=== PATIENT | male | born 1995 ===

== ENCOUNTER 2024-04-20 15:03 | Emergency (ER) | payer OTHER ==
[~2024-04-20] VITALS: Ht 190.5 cm; Wt 128.0 kg
[~2024-04-20 15:03] MED LIST: GABA-1181 PO
[2024-04-20 15:05] VITALS: BP 117/80; PULSE 82; RESP 18; TEMP 98.5
== END 2024-04-20 15:31 | disposition left against medical advice (07) ==
LOC: EMS 15:03
DX: R55 Syncope and collapse (principal); E11.9 Type 2 diabetes mellitus without complications; J45.909 Unspecified asthma, uncomplicated; F17.210 Nicotine dependence, cigarettes, uncomplicated; F12.90 Cannabis use, unspecified, uncomplicated; Z91.010 Allergy to peanuts; Z53.21 Procedure and treatment not carried out due to patient leaving prior to being seen by health care provider

== ENCOUNTER 2024-06-15 10:08 | Inpatient (IN) | payer MEDICAID, OTHER ==
[~2024-06-15] VITALS: Ht 182.9 cm; Wt 119.6 kg
[2024-06-15 11:33] LABS: BASOPHILS % (AUTO) 1.1 % (0.0-2.0); EOSINOPHILS % (AUTO) 4.3 % (1.0-6.0); HEMATOCRIT 43.6 % (41-53); HEMOGLOBIN 14.2 g/dL (13.5-17.5); LYMPHOCYTES % (AUTO) 37.2 % (22.0-44.0); MEAN CORPUSCULAR HEMOGLOBIN 28.9 pg (26.0-34.0); MEAN CORPUSCULAR HGB CONC 32.7 G/dL (31.0-37.0); MEAN CORPUSCULAR VOLUME 89 fL (80-100); MONOCYTES # (AUTO) 0.6 K/uL (0.1-1.0); MONOCYTES % (AUTO) 12.3 % (2.0-9.0); NEUTROPHILS # (AUTO) 2.4 K/uL (1.8-7.7); NEUTROPHILS % (AUTO) 45.1 % (40.0-70.0); PLATELET COUNT (AUTO) 270 K/uL (150-450); RED BLOOD CELL COUNT(AUTO) 4.92 MIL/uL (4.50-5.90); RED CELL DISTRIBUTION WIDTH 14.1 % (11.5-14.5); WHITE BLOOD COUNT (AUTO) 5.2 K/uL (4.5-11.0)
[2024-06-15 11:37] LABS: ANION GAP 5 mmol/L (8-16); CALCIUM, TOTAL 8.2 mg/dL (8.8-10.5); CARBON DIOXIDE 30 mmol/L (22-29); CHLORIDE 106 mmol/L (98-107); CREATININE 1.02 mg/dL (0.60-1.30); GLOMERULAR FILTR. RATE CALC > 60 mL/min (>60); GLUCOSE,RANDOM 93 mg/dL (70-110); POTASSIUM 4.1 mmol/L (3.5-5.1); SODIUM SERUM 141 mmol/L (136-145); UREA NITROGEN, BLOOD 11 mg/dL (7-18)
[2024-06-15 11:51] LABS: ALCOHOL, BLOOD (SERUM) < 3 mg/dL (0-10)
[2024-06-15] MEDS: LORazepam 2 MG TABLET PO PRN (12:47)
[2024-06-15] MEDS: HALOPERIDOL 5 MG TABLET PO PRN (12:47)
[2024-06-15 12:59] LABS: COVID AG,FIA SOURCE NASAL SWAB
[2024-06-15 13:19] LABS: SARS-COV2 (COVID) ANTIGEN,FIA Negative (Negative)
[2024-06-15 13:36] LABS: APPEARANCE,URINE CLEAR (CLEAR); BILIRUBIN,URINE NEGATIVE (NEGATIVE); COLOR,URINE YELLOW (YELLOW); GLUCOSE, URINE (UA) NEGATIVE (NEGATIVE); KETONES,URINE NEGATIVE (NEGATIVE); LEUKOCYTE ESTERASE ,URINE NEGATIVE (NEGATIVE); NITRATE,URINE NEGATIVE (NEGATIVE); OCCULT BLOOD,URINE NEGATIVE (NEGATIVE); PH,URINE 6.5 (5.0-8.0); PROTEIN,URINE 30-70 mg/dL (NEGATIVE); SPECIFIC GRAVITIY, URINE 1.034 (1.003-1.030)
[2024-06-15 13:56] LABS: PH,URINE DRUG SCREEN 6.5 (5.0-8.0)
[2024-06-15 14:01] LABS: ALCOHOL, URINE DRUG SCREEN NEGATIVE (NEGATIVE); AMPHET/METH SCREEN,URINE POSITIVE (NEGATIVE); BARBITURATE SCREEN, URINE NEGATIVE (NEGATIVE); BENZODIAZEPINES SCREEN,URINE NEGATIVE (NEGATIVE); CANNABINOID SCREEN,URINE POSITIVE (NEGATIVE); COCAINE SCREEN,URINE NEGATIVE (NEGATIVE); METHADONE SCREEN, URINE NEGATIVE (NEGATIVE); OPIATE SCREEN,URINE NEGATIVE (NEGATIVE); PHENCYCLIDINE SCREEN,URINE NEGATIVE (NEGATIVE)
[2024-06-15] MEDS: ZOLPIDEM TARTRATE 10 MG TABLET PO PRN (23:07)
[2024-06-15 23:14] VITALS: BP 107/60; PULSE 57; RESP 18; TEMP 97.6; O2SAT 98
[2024-06-15] MEDS ORDERED: PNEUMOCOCCAL VACCINE POLYVALENT 0.5 ML SYRINGE [PPSV23] IM. ONE (23:30)
[2024-06-16] MEDS ORDERED: IBUPROFEN 600 MG TABLET PO PRN (05:45)
[2024-06-16] MEDS ORDERED: CloNIDine HCL 0.1 MG TABLET PO PRN (05:45)
[2024-06-16] MEDS ORDERED: ONDANSETRON HCL 4 MG TABLET PO PRN (05:45)
[2024-06-16] MEDS ORDERED: OMEPRAZOLE 20 MG CAPSULE PO PRN (05:45)
[2024-06-16] MEDS ORDERED: ALBUTEROL SULFATE HFA 90 MCG/PUFF 8 GM INHALER IH PRN (05:45)
[2024-06-16] MEDS ORDERED: BACITRACIN 28 GM OINTMENT TP PRN (05:45)
[2024-06-16] MEDS ORDERED: MAG HYDROX/ALUMINUM HYD/SIMETH ES 30 ML SUSPENSION UDCUP PO PRN (05:45)
[2024-06-16] MEDS ORDERED: PETROLATUM,WHITE 28 GM JELLY TP PRN (05:45)
[2024-06-16] MEDS ORDERED: MAGNESIUM HYDROXIDE SUSPENSION 30 ML UDCUP PO PRN (05:45)
[2024-06-16] MEDS ORDERED: ACETAMINOPHEN 325 MG TABLET PO PRN (05:45)
[2024-06-16] MEDS ORDERED: DOCUSATE SODIUM 100 MG CAPSULE PO PRN (05:45)
[2024-06-16] MEDS ORDERED: LOPERAMIDE HCL 2 MG CAPSULE PO PRN (05:45)
[2024-06-16 08:40] VITALS: BP 111/65; PULSE 65; RESP 17; TEMP 97.7; O2SAT 97
[2024-06-16 21:54] VITALS: BP 110/64; PULSE 63; RESP 18; TEMP 97.8
[2024-06-17 10:28] VITALS: BP 128/70; PULSE 65; RESP 20; TEMP 98; O2SAT 98
[2024-06-17 20:51] VITALS: BP 114/68; PULSE 64; RESP 18; TEMP 97.8
[2024-06-18 08:32] VITALS: PULSE 81; RESP 18; TEMP 97.6; O2SAT 98
== END 2024-06-18 17:21 | disposition home or self-care (01) | DRG 750 ==
LOC: EMS 10:08 → 3EC 17:35 → UNDOADMIN 17:35
PROVIDERS: ADMIT Psychiatry & Neurology Psychiatry; ATTEND Psychiatry & Neurology Psychiatry
DX: F20.9 Schizophrenia, unspecified (principal); R45.851 Suicidal ideations; E11.9 Type 2 diabetes mellitus without complications; E66.9 Obesity, unspecified; F10.10 Alcohol abuse, uncomplicated; F41.9 Anxiety disorder, unspecified; G47.00 Insomnia, unspecified; F32.A Depression, unspecified; J45.909 Unspecified asthma, uncomplicated; F17.210 Nicotine dependence, cigarettes, uncomplicated; Z20.822 Contact with and (suspected) exposure to COVID-19; Y90.9 Presence of alcohol in blood, level not specified; F12.90 Cannabis use, unspecified, uncomplicated; Z68.35 Body mass index [BMI] 35.0-35.9, adult; Z91.010 Allergy to peanuts
CPT/HCPCS: 80048; 80307; 81003; 83036; 85025; 99285; G0480

== ENCOUNTER 2024-08-25 17:47 | Inpatient (IN) | payer MEDICAID, OTHER ==
[~2024-08-25] VITALS: Ht 190.5 cm; Wt 121.1 kg
[2024-08-25 18:32] LABS: ANION GAP 5 mmol/L (8-16); BASOPHILS % (AUTO) 0.4 % (0.0-2.0); CALCIUM, TOTAL 9.2 mg/dL (8.8-10.5); CARBON DIOXIDE 30 mmol/L (22-29); CHLORIDE 101 mmol/L (98-107); CREATININE 0.93 mg/dL (0.60-1.30); EOSINOPHILS % (AUTO) 2.4 % (1.0-6.0); GLOMERULAR FILTR. RATE CALC > 60 mL/min (>60); GLUCOSE,RANDOM 103 mg/dL (70-110); HEMATOCRIT 46.1 % (41-53); HEMOGLOBIN 15.3 g/dL (13.5-17.5); LYMPHOCYTES # (AUTO) 1.9 K/uL (1.0-4.8); MEAN CORPUSCULAR HEMOGLOBIN 29.3 pg (26.0-34.0); MEAN CORPUSCULAR HGB CONC 33.3 G/dL (31.0-37.0); MEAN CORPUSCULAR VOLUME 88 fL (80-100); MONOCYTES # (AUTO) 0.5 K/uL (0.1-1.0); MONOCYTES % (AUTO) 7.4 % (2.0-9.0); NEUTROPHILS # (AUTO) 4.2 K/uL (1.8-7.7); NEUTROPHILS % (AUTO) 61.8 % (40.0-70.0); PLATELET COUNT (AUTO) 345 K/uL (150-450); RED BLOOD CELL COUNT(AUTO) 5.23 MIL/uL (4.50-5.90); RED CELL DISTRIBUTION WIDTH 14.1 % (11.5-14.5); SODIUM SERUM 136 mmol/L (136-145); UREA NITROGEN, BLOOD 12 mg/dL (7-18); WHITE BLOOD COUNT (AUTO) 6.9 K/uL (4.5-11.0)
[2024-08-25 18:34] LABS: ALCOHOL, BLOOD (SERUM) < 3 mg/dL (0-10)
[2024-08-25] MEDS ORDERED: DiphenhydrAMINE HCL 50 MG/ML VIAL ONE (18:51)
[2024-08-25] MEDS ORDERED: DiphenhydrAMINE HCL 25 MG CAPSULE PO ONE (19:00)
[2024-08-25] MEDS: LORazepam 2 MG/ML VIAL IM ONE (19:11)
[2024-08-25] MEDS: DiphenhydrAMINE HCL 50 MG/ML VIAL IM ONE (19:12)
[2024-08-25] MEDS: HALOPERIDOL LACTATE 5 MG/ML VIAL IM ONE (19:12)
[2024-08-25 20:29] LABS: COVID AG,FIA SOURCE NASAL SWAB
[2024-08-25 21:02] LABS: SARS-COV2 (COVID) ANTIGEN,FIA Negative (Negative)
[2024-08-25] MEDS ORDERED: LORazepam 2 MG TABLET PO PRN (21:30)
[2024-08-25] MEDS ORDERED: HALOPERIDOL 5 MG TABLET PO PRN (21:30)
[2024-08-25] MEDS ORDERED: ZOLPIDEM TARTRATE 10 MG TABLET PO PRN (21:30)
[2024-08-25 22:37] VITALS: O2SAT 98
[2024-08-25] MEDS ORDERED: PNEUMOCOCCAL VACCINE POLYVALENT 0.5 ML SYRINGE [PPSV23] IM. ONE (23:45)
[2024-08-26 00:33] VITALS: BP 118/76; PULSE 72; RESP 18; TEMP 98; O2SAT 98
[2024-08-26 08:51] VITALS: BP 142/75; PULSE 90; RESP 18; TEMP 97.8; O2SAT 99
[2024-08-26] MEDS ORDERED: GuaiFENesin/D-METHORPHAN [SUGAR-FREE] 200-20MG/10 ML SYRUP UDCUP PO PRN (09:45)
[2024-08-26] MEDS ORDERED: ONDANSETRON 4 MG TABLET PO PRN (09:45)
[2024-08-26] MEDS ORDERED: DOCUSATE SODIUM 100 MG CAPSULE PO PRN (09:45)
[2024-08-26] MEDS ORDERED: PETROLATUM,WHITE 28 GM JELLY TP PRN (09:45)
[2024-08-26] MEDS ORDERED: NICOTINE 14 MG/24 HOUR PATCH TD PRN (09:45)
[2024-08-26] MEDS ORDERED: CloNIDine HCL 0.1 MG TABLET PO PRN (09:45)
[2024-08-26] MEDS ORDERED: LOPERAMIDE HCL 2 MG CAPSULE PO PRN (09:45)
[2024-08-26] MEDS ORDERED: MAGNESIUM HYDROXIDE SUSPENSION 30 ML UDCUP PO PRN (09:45)
[2024-08-26] MEDS ORDERED: ALBUTEROL SULFATE HFA 90 MCG/PUFF 8 GM INHALER IH PRN (09:45)
[2024-08-26] MEDS ORDERED: ACETAMINOPHEN 325 MG TABLET PO PRN (09:45)
[2024-08-26] MEDS ORDERED: IBUPROFEN 400 MG TABLET PO PRN (09:45)
[2024-08-26] MEDS ORDERED: MAG HYDROX/ALUMINUM HYD/SIMETH ES 30 ML SUSPENSION UDCUP PO PRN (09:45)
[2024-08-26] MEDS: GABAPENTIN 300 MG CAPSULE PO SCH (10:00)
[2024-08-26] MEDS: TraZODone HCL 50 MG TABLET PO SCH (10:00)
[2024-08-26] MEDS: OLANZapine 7.5 MG TABLET PO SCH (10:00)
[2024-08-26] MEDS: SERTRALINE HCL 50 MG TABLET PO SCH (10:00)
[2024-08-26 17:55] VITALS: BP 125/78; PULSE 88; RESP 18; TEMP 97.8
[2024-08-26 22:00] VITALS: BP 122/73; PULSE 92; RESP 17; TEMP 98; O2SAT 98
[2024-08-27 08:24] VITALS: BP 100/60; PULSE 74; RESP 18; TEMP 98; O2SAT 100
[2024-08-27 09:02] LABS: HEMOGLOBIN A1C 5.1 % (3.8-5.6)
[2024-08-27 09:12] LABS: CHOL/HDL RATIO 3.6 (4.2-7.3); THYROID STIMULATING HORMONE 0.93 uIU/mL (0.36-3.74)
[2024-08-27 20:43] VITALS: BP 109/62; PULSE 70; RESP 17; TEMP 98; O2SAT 98
[2024-08-28 08:17] VITALS: BP 137/86; PULSE 79; RESP 18; TEMP 97.4; O2SAT 97
[2024-08-28 20:11] VITALS: BP 138/88; PULSE 71; RESP 18; TEMP 98; O2SAT 97
[2024-08-29 08:33] VITALS: BP 109/60; PULSE 69; RESP 17; TEMP 97; O2SAT 99
[2024-08-29] MEDS ORDERED: SERT-158 PO (13:38)
[2024-08-29] MEDS ORDERED: TRAZ-252 PO (13:38)
[2024-08-29] MEDS ORDERED: GABA-1181 PO (13:38)
[2024-08-29] MEDS ORDERED: OLAN7.5T22 PO (13:38)
[2024-08-30] MEDS ORDERED: GABA-1181 PO (06:45)
[2024-08-30] MEDS ORDERED: SERT-439 PO (06:45)
[2024-08-30] MEDS ORDERED: OLAN7.5T22 PO (06:45)
[2024-08-30] MEDS ORDERED: TRAZ-252 PO (06:45)
== END 2024-08-29 14:30 | disposition home or self-care (01) | DRG 750 ==
LOC: EMS 17:47 → B3A 21:21
PROVIDERS: ADMIT Psychiatry & Neurology Psychiatry; ATTEND Psychiatry & Neurology Psychiatry
PROC: GZHZZZZ Group Psychotherapy (ICD-10-PCS; principal; 2024-08-26)
PROC: GZ56ZZZ Individual Psychotherapy, Supportive (ICD-10-PCS; 2024-08-26)
DX: F25.0 Schizoaffective disorder, bipolar type (principal); E11.9 Type 2 diabetes mellitus without complications; R45.851 Suicidal ideations; J45.909 Unspecified asthma, uncomplicated; Z20.822 Contact with and (suspected) exposure to COVID-19; Z59.00 Homelessness unspecified; E66.9 Obesity, unspecified; Z68.33 Body mass index [BMI] 33.0-33.9, adult; F41.9 Anxiety disorder, unspecified; G47.00 Insomnia, unspecified; Z79.899 Other long term (current) drug therapy; Z87.891 Personal history of nicotine dependence; Z91.010 Allergy to peanuts
CPT/HCPCS: 80048; 80061; 83036; 84443; 85025; 99285; G0480; J1200; J1630; J2060